=== PATIENT | male | born 1980 | race Caucasian/White ===

== ENCOUNTER 2025-10-14 11:03 | Emergency (ER) | payer OTHER ==
[~2025-10-14] VITALS: Ht 182.9 cm; Wt 97.0 kg
[2025-10-14 11:05] VITALS: O2SAT 99
[2025-10-14 11:59] LABS: BASOPHILS % 0.7 % (0.0-2.0); EOSINOPHILS % 1.4 % (0.0-5.0); HEMATOCRIT. 42.1 % (42.0-52.0); HEMOGLOBIN. 14.2 g/dL (14.0-18.0); LYMPHOCYTES % 26.5 % (20.0-50.0); MEAN PLATELET VOLUME 8.4 fl (7.4-10.4); MONOCYTES % 6.4 % (2.0-8.0); NEUTROPHILS % 65.0 % (40.0-76.0); PLATELET 213 x1000/uL (130-400); RED BLOOD CELL COUNT 4.97 mill/uL (4.7-6.1); RED CELL DISTRIBUTION WIDTH 13.9 % (11.6-14.6)
[2025-10-14 12:21] LABS: TROPONIN I HIGH SENSITIVITY < 4 ng/L (3.0-53)
[2025-10-14 12:36] LABS: CREATININE 1.0 mg/dL (0.6-1.3); UREA NITROGEN BLOOD 13 mg/dL (9-23)
[2025-10-14 12:45] VITALS: BP 151/93; PULSE 88; RESP 22; TEMP 36.9; O2SAT 97
== END 2025-10-14 12:50 ==
LOC: ER 11:03
DX: R07.9 Chest pain, unspecified (principal); I10 Essential (primary) hypertension
CPT/HCPCS: 80048; 85025; 84484; 36415; 71045; 93005; 99285; Z7610 ×2